=== PATIENT | female | born 1985 | race Caucasian/White ===

== ENCOUNTER 2020-06-24 04:50 | Day surgery (SDC) | payer OTHER ==
[2020-06-24] MEDS ORDERED: PERCOCET 5-3251 EACH PO (14:59)
== END 2020-06-24 17:00 | disposition home or self-care (01) ==
LOC: CIR.AMB 04:50 → EDSEX 10:15 → CIR.AMB 10:15
PROVIDERS: ATTEND Surgery
DX: K60.3 Anal fistula (principal); K64.4 Residual hemorrhoidal skin tags; Z20.822 Contact with and (suspected) exposure to COVID-19

== ENCOUNTER 2020-10-07 05:35 | Day surgery (SDC) | payer OTHER ==
[~2020-10-07 05:35] MED LIST: PERCOCET 5-3251 EACH PO; [UNRECOGNIZED DRUG - REMARK] PO
[2020-10-07] MEDS ORDERED: PERCOCET 5-3251 EACH PO (09:50)
== END 2020-10-07 14:35 | disposition home or self-care (01) ==
LOC: CIR.AMB 05:35
PROVIDERS: ATTEND Surgery
DX: K60.3 Anal fistula (principal); K64.4 Residual hemorrhoidal skin tags; Z20.822 Contact with and (suspected) exposure to COVID-19